=== PATIENT | female | born 1965 ===

== ENCOUNTER → 2020-11-12 | Outpatient (CLI) | payer OTHER | LOC: LAB 13:06 → LAB SHORT 13:06 | DX: R21 Rash and other nonspecific skin eruption (principal) | CPT/HCPCS: 88312 ==

== ENCOUNTER → 2021-04-28 | Outpatient (CLI) | payer MEDICARE, OTHER | END | disposition home or self-care (01) | LOC: LAB SHORT 10:58 | DX: L08.9 Local infection of the skin and subcutaneous tissue, unspecified (principal); L81.4 Other melanin hyperpigmentation; Z71.89 Other specified counseling | CPT/HCPCS: 87070; 87147; 87205 ==